=== PATIENT | male | born 1985 | race Caucasian/White ===

== ENCOUNTER 2017-07-31 14:44 | Emergency (ER) | payer SELFPAY ==
[~2017-07-31] VITALS: Ht 172.7 cm; Wt 72.5 kg
[2017-07-31 14:48] VITALS: BP 129/82; PULSE 92; RESP 18; TEMP 97.9; O2SAT 99
--- NOTE | 2017-07-31 16:19 | PD ---
HPI Chief Complaint: Medication Refill Request Time Seen by Provider: 16:09 Travel History International Travel<30 days: No Contact w/Intl Traveler<30days: No Traveled to known affect area: No History of Present Illness HPI Patient is a 31-year-old male presenting to the emergency department for a medication refill. Patient states he is on temazepam 30 mg at night. He has been taking this medication for approximately 1 month. He states that he has been out for 2 days and is having a difficult time sleeping. He reports that he went to his primary doctor's office this morning however they were close. He has no other complaints at this time. [facility] Past Medical History Insomnia: Yes Social History Tobacco Use: No Allergies-Medications (Allergen,Severity, Reaction): Coded Allergies: Penicillins (Verified Allergy, Severe, Anaphylaxis, 07/31/17) albuterol (Verified Allergy, Severe, Anaphylaxis, 07/31/17) ibuprofen (Verified Allergy, Severe, Swelling, 07/31/17) ipratropium (Verified Allergy, Severe, Anaphylaxis, 07/31/17) Uncoded Allergies: ARCOXIA (Allergy, Severe, Swelling, 07/31/17) PARACETAMOL (Allergy, Severe, Anaphylaxis, 07/31/17) Review of Systems Except as stated in HPI: all other systems reviewed are Neg General / Constitutional: Positive: Other (Insomnia) Physical Exam Narrative GENERAL: Well-developed, well-nourished, alert male. Presenting in no acute distress. SKIN: Warm and dry. HEAD: Normocephalic. EYES: No scleral icterus. No injection or drainage. NECK: Supple, trachea midline. No JVD or lymphadenopathy. CARDIOVASCULAR: Regular rate and rhythm without murmurs, gallops, or rubs. RESPIRATORY: Breath sounds equal bilaterally. No accessory muscle use. GASTROINTESTINAL: Abdomen soft, non-tender, nondistended. MUSCULOSKELETAL: No cyanosis, or edema. BACK: Nontender without obvious deformity. No CVA tenderness. Data Data Last Documented VS Vital Signs Date Time Temp Pulse Resp B/P (MAP) Pulse Ox O2 Delivery O2 Flow Rate FiO2 07/31/17 14:48 97.9 92 18 129/82 (98) 99 MDM Medical Decision Making Medical Screen Exam Complete: Yes Emergency Medical Condition: Yes Interpretation(s) Vital Signs Date Time Temp Pulse Resp B/P (MAP) Pulse Ox O2 Delivery O2 Flow Rate FiO2 07/31/17 14:48 97.9 92 18 129/82 (98) 99 Differential Diagnosis Medication refill versus insomnia versus other Narrative Course Patient is well-appearing 21-year-old male presenting for refill of temazepam. Patient was advised that we do not refill narcotic medications emergency department. His doctor will be back in office on Thursday, he was advised to call his doctor to obtain a refill at that time. Patient does not have to work or go to school all week and. He was encouraged to avoid stimulants prior to bedtime, trial of warm bath or meditation or listening to music to help him sleep. A medical screening exam was performed: At the time of evaluation the presenting medical condition was determined not to be of an emergent nature. The patient was given the option of receiving additional care, but declined. Patient was given options for additional community resources from which to obtain care. The Patient Has Been advised to seek medical attention for their presenting complaint. The patient has been advised to return to the ER at any time if an emergent condition develops. Diagnosis Primary Impression: Encounter for medical screening examination Stefanie Marshall Jul 31, 2017 16:18
== END 2017-07-31 16:24 | disposition left against medical advice (07) ==
LOC: NEPD 14:44
DX: G47.00 Insomnia, unspecified (principal)
CPT/HCPCS: 99281